=== PATIENT | female | born 1995 | race African-American/Black ===

== ENCOUNTER 2022-01-01 14:48 | Outpatient (CLI) | payer OTHER ==
[2022-01-01 16:16] LABS: Basophils % (A) 0 %; Eosinophils % (A) 0 %; HCT 36.6 % (34.0-46.0); HGB 11.8 gm/dL (11.4-16.0); Lymphocytes # (A) 1.9 k/uL (1.0-4.8); Lymphocytes % (A) 18 %; MCH 28.2 pg (25.0-35.0); MCHC 32.3 g/dL (31.0-37.0); MCV 87.3 fL (80.0-100.0); Monocytes # (A) 0.6 k/uL (0-1.0); Monocytes % (A) 6 %; Neutrophils # (A) 7.3 k/uL (1.3-7.7); Neutrophils % (A) 72 %; Platelet Count 191 k/uL (150-450); RBC 4.19 m/uL (3.80-5.40); RDW 13.3 % (11.5-15.5); WBC 10.1 k/uL (3.8-10.6)
[2022-01-01 16:20] VITALS: BP 133/74; PULSE 68; RESP 16; TEMP 97
[2022-01-01 16:20] LABS: Appearance,Urine Clear (Clear); Bilirubin,Urine Negative (Negative); Blood,Urine Negative (Negative); Color,Urine Yellow; Glucose,Urine (UA) Negative (Negative); Ketones,Urine Negative (Negative); Leukocyte Esterase,Urine Negative (Negative); Nitrite,Urine Negative (Negative); PH, Urine 6.5 (5.0-8.0); Protein,Urine Trace (Negative); Specific Gravity,Urine 1.024 (1.001-1.035); Urobilinogen,Urine <2.0 mg/dL (<2.0)
[2022-01-01 16:37] LABS: Amphetamine Screen,Urine Not Detected (NotDetected); Barbiturate Screen,Urine Not Detected (NotDetected); Benzodiazepines Screen,Urine Not Detected (NotDetected); Cocaine Screen,Urine Not Detected (NotDetected); Methadone Screen, Urine Not Detected (NotDetected); Opiate Screen,Urine Not Detected (NotDetected); Oxycodone Screen, Urine Not Detected (NotDetected); Phencyclidine Screen,Urine Not Detected (NotDetected); Tricyclic Antidepressant,Urine Not Detected (NotDetected); Urn Cannabinoid Scrn Detected (NotDetected)
--- NOTE | 2022-01-03 09:11 | P.MSEPDOC ---
Presenting Problems - Arrival Data Date of Arrival on Unit: 01/01/22 Time of Arrival on Unit: 14:42 Mode of Transport: Ambulatory - Complaint OB-Reason for Admission/Chief Complaint: Rule Out PROM Comment: yesterday at approx5-6pm, small leak of fluid, none since Medical History - Information : 3 Para: 1 Abortions: Spontaneous or Elective: 1 Number of Living Children: 1 - Gestational Age Gestational Age by ALEXANDER (wks/days): 33 Weeks and 3 Days - History Complications: No Care Review of Systems - Review of Systems Constitutional: No problems Breast: No problems ENT: No problems Cardiovascular: No problems Respiratory: No problems Gastrointestinal: No problems Genitourinary: No problems Musculoskeletal: No problems Neurological: No problems Skin: No problems Vital Signs - Temperature Temperature: 97.0 F Temperature Source: Temporal Artery Scan - Pulse Right Sitting Brachial Pulse Rate: 68 Pulse Assessment Method: Automatic Cuff - Respirations Respiratory Rate: 16 Oxygen Delivery Method: Room Air O2 Sat by Pulse Oximetry: 99 - Blood Pressure Right Arm Sitting Blood Pressure: 133/74 Blood Pressure Mean: 93 Blood Pressure Source: Automatic Cuff Medical Screen Scoring - Cervical Exam Dilation (cm): 0 Effacement (%): 0 Membranes: Intact - Uterine Contractions Frequency From (mins): 0 Frequency To (mins): 0 Duration From (seconds): 0 Duration To (seconds): 0 Intensity: Absent Resting: Soft to palpation - Assessment - Baby A Baseline FHR: 130 Heart Rate - NICHD Category: Category I (Normal) NST: Reactive Physician Notification - Physician Notified Physician Notified Date: 01/01/22 Physician Notified Time: 15:55 Physician: Leslye Ruiz New Order Received: Yes - Notification Comment Comment: labs, ua, uds. pt to f/u with cherrie in office to establish as new patient Maternal Triage Index - Maternal Triage Index Presenting for scheduled procedure w/no complaint: No - Stat/Priority 1 Stat Priority 1: No - Urgent/Priority 2 Urgent Priority 2: No - Prompt/Priority 3 Prompt Priority 3: Yes Criteria Met for Priority 3: leaking fluid Disposition - Disposition OB Disposition: Physician follow up in office, Discharge to home Discharge Date: 01/01/22 Discharge Time: 16:10 I agree with the RN Medical Screening Exam: Yes Case reviewed; plan agreed upon as documented in EMR&OBIX.: Yes Comments: Patient was neither seen nor examined by me Diagnosis: FALSE LABOR BEFORE 37 COMPLETED WEEKS OF GEST, THIRD TRI
== END 2022-01-01 16:10 | disposition home or self-care (01) ==
LOC: FBPOP 14:48
PROVIDERS: ATTEND Obstetrics & Gynecology
DX: O47.03 False labor before 37 completed weeks of gestation, third trimester (principal); Z3A.33 33 weeks gestation of pregnancy
CPT/HCPCS: 59025; 84112; 86900; 86901; 85025; 86850; 86870; 86880; 87340; 81003; 86780; 80306; 87390; G0463; 99203

== ENCOUNTER 2022-01-23 13:32 | Outpatient (CLI) | payer MEDICARE, OTHER ==
[2022-01-23 15:29] VITALS: BP 137/75; PULSE 70; RESP 16; TEMP 97.4
--- NOTE | 2022-02-03 08:59 | P.MSEPDOC ---
Presenting Problems - Arrival Data Date of Arrival on Unit: 01/23/22 Time of Arrival on Unit: 13:27 Mode of Transport: Ambulatory - Complaint OB-Reason for Admission/Chief Complaint: Other Comment: Patient presents to triage with increased pressure in her vagina for the last 2 weeks and swelling in her legs and ankles that started on sunday. Patient has an appt with Dr. Ruiz on 01/24 Medical History - Information : 3 Para: 2 Term: 1 : 1 Abortions: Spontaneous or Elective: 0 Number of Living Children: 1 - Gestational Age Gestational Age by ALEXANDER (wks/days): 36 Weeks and 4 Days - History Complications: Prior , Prior Comment: First delivery was a C/S for a drop in heartrate, patient states she had blood pressure issues with that . 2nd was a vaginal delivery, patient states she went into labor at "6 Months" and "they were not able to stop it" and the baby did not live. Review of Systems - Review of Systems Constitutional: No problems Breast: No problems ENT: No problems Cardiovascular: No problems Respiratory: No problems Gastrointestinal: No problems Genitourinary: No problems Musculoskeletal: No problems Neurological: No problems Skin: No problems Vital Signs - Temperature Temperature: 97.4 F Temperature Source: Temporal Artery Scan - Pulse Pulse Oximetery Pulse Rate: 70 Pulse Assessment Method: Pulse Oximetry - Respirations Respiratory Rate: 16 Oxygen Delivery Method: Room Air O2 Sat by Pulse Oximetry: 99 - Blood Pressure Sitting Blood Pressure: 137/75 Blood Pressure Mean: 95 Blood Pressure Source: Automatic Cuff Medical Screen Scoring - Cervical Exam Dilation (cm): 0 Effacement (%): 0 Station: -2 Membranes: Intact - Uterine Contractions Intensity: Absent Resting: Soft to palpation - Assessment - Baby A Baseline FHR: 130 Heart Rate - NICHD Category: Category I (Normal) NST: Reactive Physician Notification - Physician Notified Physician Notified Date: 01/23/22 Physician Notified Time: 14:18 Physician: Leslye Ruiz Order Received: Yes - Notification Comment Comment: Orders given to discharge patient home with instructions, patient to follow up with Dr. Ruiz in the office with her regularly schedule appt tomorrow Maternal Triage Index - Prompt/Priority 3 Prompt Priority 3: Yes Criteria Met for Priority 3: Patient is 36 4/7 with a history of a C/S delivery with her first baby and a demise with her second baby. Patient has been having vaginal pressure for the last 2 weeks and increased swelling of her ankles and feet since sunday. Patient has an appt with Dr. Ruiz tomorrow. Disposition - Disposition OB Disposition: Physician follow up in office, Discharge to home, Written follow up instructions reviewed Discharge Date: 01/23/22 Discharge Time: 14:19 I agree with the RN Medical Screening Exam: Yes Case reviewed; plan agreed upon as documented in EMR&OBIX.: Yes Comments: Patient is neither seen nor examined by me Diagnosis: FALSE LABOR BEFORE 37 COMPLETED WEEKS OF GEST, THIRD TRI
== END 2022-01-23 14:19 | disposition home or self-care (01) ==
LOC: FBPOP 13:32
PROVIDERS: ATTEND Obstetrics & Gynecology
DX: O47.03 False labor before 37 completed weeks of gestation, third trimester (principal); Z3A.36 36 weeks gestation of pregnancy; Z88.6 Allergy status to analgesic agent
CPT/HCPCS: 59025; G0463; 99213

== ENCOUNTER 2022-01-30 12:06 | Outpatient (CLI) | payer MEDICARE, OTHER ==
[2022-01-30 14:38] VITALS: BP 133/82; PULSE 81; RESP 18; TEMP 97.3
--- NOTE | 2022-01-30 15:10 | US ---
EXAMINATION TYPE: US OB BPP wo non-stress DATE OF EXAM: 01/30/2022 COMPARISON: NONE CLINICAL HISTORY: Non reactive NST. EXAM PERFORMED: Transabdominal (TA) BPP PARAMETERS: PRESENTATION: Vertex HEART RATE: 149 bpm RHYTHM: Normal APOLINAR: 6.1cm DIAPHRAGM IMAGED: yes BPP SCORIN. Breathin (1 episode of breathing of 30 second duration in 30 minutes of scanning time) 2. Movement: 2 (at least 3 discrete body movements in 30 minutes) 3. Tone: 2 (1 episode of active flexion/extension of limb) 4. APOLINAR: 2 (APOLINAR index > 5cm) TOTAL SCORE: 8 / 8 Impressions: 1. Normal biophysical profile scoring 8 out of 8 points. 2. Cardiac activity measures 149 bpm.
== END 2022-01-30 14:20 | disposition home or self-care (01) ==
LOC: FBPOP 12:06
PROVIDERS: ATTEND Obstetrics & Gynecology
DX: O36.5930 Maternal care for other known or suspected poor fetal growth, third trimester, not applicable or unspecified (principal); O41.03X0 Oligohydramnios, third trimester, not applicable or unspecified; Z3A.37 37 weeks gestation of pregnancy; Z88.0 Allergy status to penicillin
CPT/HCPCS: 59025; 76819

== ENCOUNTER 2022-02-02 09:07 | Inpatient (IN) | payer MEDICARE, OTHER ==
[2022-02-01 12:16] VITALS: BMI 33.1
[2022-02-02] MEDS ORDERED: LACTATED RINGERS 1,000 ML IV ONE (10:22)
[2022-02-02] MEDS ORDERED: CLINDAMYCIN 900 MG in DEXTROSE 5% IN WATER 50 ML IVPB ONE ×2 (10:22)
[2022-02-02] MEDS ORDERED: CITRIC ACID-SODIUM CITRATE 15 ML CUP PO ONE (10:22)
[2022-02-02 11:09] LABS: Basophils % (A) 0 %; Eosinophils % (A) 0 %; HCT 36.2 % (34.0-46.0); HGB 12.3 gm/dL (11.4-16.0); Lymphocytes # (A) 1.9 k/uL (1.0-4.8); Lymphocytes % (A) 19 %; MCH 29.5 pg (25.0-35.0); MCHC 34.1 g/dL (31.0-37.0); MCV 86.5 fL (80.0-100.0); Mean Platelet Volume 9.5; Monocytes # (A) 0.6 k/uL (0-1.0); Monocytes % (A) 7 %; Neutrophils # (A) 6.8 k/uL (1.3-7.7); Neutrophils % (A) 70 %; Platelet Count 193 k/uL (150-450); RBC 4.18 m/uL (3.80-5.40); RDW 13.7 % (11.5-15.5); WBC 9.8 k/uL (3.8-10.6)
[2022-02-02] MEDS ORDERED: MORPHINE SULFATE (PF) 0.3 MG/0.3 ML SYR ONE (11:32)
[2022-02-02] MEDS ORDERED: ePHEDrine 50 MG/ML 1 ML VIAL ONE (11:32)
[2022-02-02] MEDS ORDERED: ONDANSETRON 4 MG/2 ML VIAL ONE (11:32)
[2022-02-02] MEDS ORDERED: NALBUPHINE 10 MG/ML (1 ML AMP) ONE (11:32)
[2022-02-02] MEDS ORDERED: OXYTOCIN 30 UNITS/500 ML NS BAG IV ONE (11:32)
[2022-02-02] MEDS ORDERED: KETOROLAC 15 MG/ML 1 ML VIAL ONE (11:32)
--- NOTE | 2022-02-02 11:39 | P.HPOB ---
History of Present Illness H&P Date: 02/02/22 Chief Complaint: Here for repeat low transverse section This is a 26-year-old 3 para 10/08/2001 who presented at 38 weeks gestation for repeat low transverse section. EDC is 02/16/2022. Patient has a known IUGR , estimated weight 9 percentile, abdominal circumference 3rd percentile. There is also decreased fluid noted. Patient has a history of a previous stillbirth, unexplained etiology. There is a peripheral cord insertion noted. After thorough discussion with maternal- medicine, decision was made to deliver this baby at 38 weeks gestation. Past medical history is significant for anxiety and depression, seizure disor jae, thyroid disorder. Past surgical history section for nonreassuring heart tones and another institution. Current medications vitamins daily. ALLERGIES include penicillin to which she reports shortness of breath. Social history patient is a former tobacco smoker, she does smoke marijuana, she denies alcohol or drug use. history is significant for blood type B+, rubella status immune. VDRL testing, urine culture, hepatitis B surface antigen, HIV testing, gonorrhea and chlamydia cultures all negative. Group B strep cultures negative. Urine drug screen positive for kidney adenoids. One-hour Glucola 109. On exam vital signs are stable and the patient is afebrile. She is approximately 170 pounds. The general physical exam is within normal limits. Chest is clear. Extremities reveal no edema. Cervix is long thick and closed. heart rate is consistent with reactive NST. Impression: 38 week intrauterine , intrauterine growth restriction, abdominal circumference less than 3rd percentile, oligohydramnios, peripheral cord insertion. After consultation with maternal- medicine, recommendation was to deliver baby at 38 weeks gestation. Plan: Clindamycin prophylaxis. All risks and benefits have been discussed with the patient. She is declining the option of tubal ligation. We will proceed with low transverse section. Review of Systems Constitutional: Reports as per HPI Past Medical History Past Medical History: No Reported History History of Any Multi-Drug Resistant Organisms: None Reported Past Surgical History: Section Past Anesthesia/Blood Transfusion Reactions: No Reported Reaction Past Psychological History: Anxiety, Depression Additional Psychological History / Comment(s): NOT CURRENTLY ON ANY RX Smoking Status: Never smoker Past Alcohol Use History: None Reported Past Drug Use History: None Reported - Past Family History Mother Family Medical History: No Reported History Medications and Allergies Home Medications Medication Instructions Recorded Confirmed Type Pnv No.95/Ferrous Fum/Folic AC 1 each PO DAILY 01/30/22 02/02/22 History [ Multivitamin Tablet] Allergies Allergy/AdvReac Type Severity Reaction Status Date / Time Penicillins Allergy Dyspnea Verified 02/02/22 11:22 Exam Vital Signs Temp Pulse Resp BP 02/02/22 10:19 97.7 F 78 16 121/72 Intake and Output 02/01/22 02/02/22 02/02/22 22:59 06:59 14:59 Other: Weight 90.265 kg See dictation under HPI please Results Result Diagrams: 02/02/22 10:40 Assessment and Plan Assessment: 38 week intrauterine , intrauterine growth restriction. Peripheral cord insertion. History of stillbirth. Oligohydramnios. Maternal- medicine recommendation for liver at 38 weeks. Plan: Antibiotic prophylaxis given. For repeat low transverse section. All risks benefits and alternatives discussed. Tubal ligation declined. Time with Patient: Less than 30
[2022-02-02] MEDS ORDERED: ZOLPIDEM 5 MG TAB PO PRN (12:24)
[2022-02-02] MEDS ORDERED: ONDANSETRON 4 MG/2 ML VIAL IVP PRN (12:24)
[2022-02-02] MEDS ORDERED: diphenhydrAMINE 50 MG/ML 1 ML VIAL IVP PRN ×2 (12:24)
[2022-02-02] MEDS ORDERED: NALOXONE 0.4 MG/ML 1 ML VIAL IV PRN (12:24)
[2022-02-02] MEDS ORDERED: SIMETHICONE 80 MG CHEWABLE PO PRN (12:24)
[2022-02-02] MEDS ORDERED: diphenhydrAMINE 25 MG CAP PO PRN (12:24)
[2022-02-02] MEDS ORDERED: METOCLOPRAMIDE 5 MG/ML 2 ML VIAL IVP PRN (12:24)
[2022-02-02] MEDS ORDERED: diphenhydrAMINE 50 MG CAP PO PRN (12:24)
--- NOTE | 2022-02-02 12:24 | P.OP ---
Date of Procedure: 02/02/22 Preoperative Diagnosis: 38 weeks, intrauterine growth restriction, oligohydramnios, peripheral cord insertion, previous Postoperative Diagnosis: Same, liveborn male , right occiput transverse. Small fibroids sub serosally Procedure(s) Performed: Repeat low transverse section Anesthesia: spinal Surgeon: Leslye Ruiz Master Control Supervisor #1: Arthur Bhat Estimated Blood Loss (ml): 300 IV fluids (ml): 700 Urine output (ml): 100 Pathology: other (Placenta) Condition: stable Disposition: PACU Operative Findings: Several small subserosal uterine fibroids, occiput transverse position, light meconium-stained fluid, liveborn male with scores of 9 and 9 Description of Procedure: Antibiotics are given. Patient is brought to the operating suite. A spinal analgesia is administered without difficulty. Mata catheter is placed. The abdomen is prepped and draped in usual sterile fashion. The appropriate timeout was performed to assure proper patient and procedural identification. Analgesia is checked and noted to be adequate. A low transverse skin incision is made in this is carried down through the subcutaneous tissue to the fascia. Fascia is isolated, scored, extended bilaterally with curved Armstrong scissors. Peritoneum is next identified and incised, there is no bowel or bladder involvement. Bladder blade is placed over the dome of the bladder, bladder is very low and therefore not develop separately. A low transverse uterine incision is made in this is carried down. Artificial amniorrhexis revealed light meconium-stained fluid. 's head is delivered in the occiput transverse position. There is no nuchal cord noted. The patient is officially delivered of a liveborn at 1152 hours. Umbilical cord is doubly clamped and ligated, he is handed to waiting nurses for evaluation where scores of 9 and 9 at one and 5 minutes respectively are given. The placenta is delivered manually, it is inspected and noted to be intact with trivascular cord and a marginal insertion. This is sent to pathology for further evaluation. Uterus is then externalized and massaged. It is swept clean with a sterile sponge. Uterus is closed in a two-step fashion, first layer running locking, second layer imbricated. Excellent hemostasis. Bilateral tubes and ovaries appear normal. There are multiple small fibroids on the subserosal surface of the uterus, all less than 5 mm. The abdomen is suctioned with suction on guard and the uterus is gently placed back into the abdominal cavity. Bilateral gutters are inspected and cleaned. The peritoneum was allowed to heal by secondary intention. The fascia is closed in a running stitch of 0 Vicryl with over ligation in the midline. Subcutaneous tissue is irrigated, clean and dry. 4-0 undyed Monocryl is used in a subcuticular fashion for final skin closure. Steri-Strips and Mastisol are applied to the wound. All sponge needle and enhancement counts are correct. Mata is noted to be draining clear urine. Patient is brought back to the recovery room in excellent condition with stable vital signs including blood pressure 119/54, pulse 82, 98% O2 saturation. Patient is requesting circumcision for her son, who weighs 2560 g or 5 lbs. 10 oz.
[2022-02-02] MEDS ORDERED: KETOROLAC 15 MG/ML 1 ML VIAL IM STA (17:52)
[2022-02-02] MEDS: ACETAMINOPHEN TAB 500 MG TAB PO SCH ×2 (20:32→22:04)
[2022-02-02] MEDS: IBUPROFEN 600 MG TAB PO SCH (20:32)
[2022-02-02] MEDS: LACTATED RINGERS 1,000 ML IV SCH ×2 (20:33)
[2022-02-02] MEDS: SENNOSIDES-DOCUSATE SODIUM 1 EACH TAB PO SCH (20:36)
[2022-02-03] MEDS: IBUPROFEN 600 MG TAB PO SCH ×4 (02:04→21:05)
[2022-02-03] MEDS: ACETAMINOPHEN TAB 500 MG TAB PO SCH ×3 (03:44→17:39)
[2022-02-03] MEDS: LACTATED RINGERS 1,000 ML IV SCH ×5 (03:44→19:52)
[2022-02-03 06:25] LABS: Basophils % (A) 0 %; Eosinophils % (A) 0 %; HCT 35.1 % (34.0-46.0); HGB 11.2 gm/dL (11.4-16.0); Lymphocytes # (A) 1.6 k/uL (1.0-4.8); Lymphocytes % (A) 11 %; MCH 28.3 pg (25.0-35.0); MCV 88.4 fL (80.0-100.0); Mean Platelet Volume 9.5; Monocytes % (A) 7 %; Neutrophils # (A) 11.6 k/uL (1.3-7.7); Neutrophils % (A) 80 %; Platelet Count 174 k/uL (150-450); RBC 3.97 m/uL (3.80-5.40); RDW 13.3 % (11.5-15.5); WBC 14.4 k/uL (3.8-10.6)
[2022-02-03] MEDS: SENNOSIDES-DOCUSATE SODIUM 1 EACH TAB PO SCH ×2 (08:33→21:04)
--- NOTE | 2022-02-03 08:50 | P.PN ---
Subjective Progress Note Date: 02/03/22 Principal diagnosis: Doing well postoperative day #1 Voiding, ambulating, positive flatus. No complaints. Pain well managed Objective - Vital Signs Vital signs: Vital Signs Temp 98.1 F 02/03/22 04:00 Pulse 74 02/03/22 04:00 Resp 16 02/03/22 04:00 BP 130/72 02/03/22 04:00 Pulse Ox 98 02/03/22 04:00 Intake & Output 02/02/22 02/03/22 02/03/22 18:59 06:59 18:59 Output Total 1210 800 Balance -1210 -800 Weight 90.265 kg Output: Urine 600 800 Uretheral (Mata) 200 Emesis 0 Estimated Blood Loss 600 Output, Quantitative 10 Blood Loss - Constitutional General appearance: Present: average body habitus, cooperative - EENT Eyes: Present: PERRLA ENT: Present: hearing grossly normal - Neck Neck: Present: normal ROM - Respiratory Respiratory: bilateral: CTA - Cardiovascular Rhythm: regular - Gastrointestinal Gastrointestinal Comment(s): Incision clean and dry, intact, Steri-Strips applied. Fundus firm, midline, symmetric, 18 week size. - Integumentary Integumentary: Present: normal - Musculoskeletal Musculoskeletal: Present: gait normal, strength equal bilaterally - Psychiatric Psychiatric: Present: A&O x's 3, appropriate affect, intact judgment & insight - Labs CBC & Chem 7: 02/03/22 05:44 Labs: Abnormal Lab Results - Last 24 Hours (Table) 02/03/22 Range/Units 05:44 WBC 14.4 H (3.8-10.6) k/uL Hgb 11.2 L (11.4-16.0) gm/dL Neutrophils # 11.6 H (1.3-7.7) k/uL Assessment and Plan Assessment: Doing well postoperative day #1 Plan: Continue postoperative care. Circumcision this morning. Likely discharge home tomorrow. Time with Patient: Less than 30
--- NOTE | 2022-02-03 11:38 | P.PN ---
Progress Note - Text Progress Note Date: 02/03/22 Patient doing well. Ambulating w/o weakness or paresthesia. Pain controlled. Pruritis treated. Denies headache. Spinal site c/d a/p POD#1 s/p w/ duramorph - doing well
[2022-02-04] MEDS: ACETAMINOPHEN TAB 500 MG TAB PO SCH ×3 (00:10→11:01)
[2022-02-04] MEDS: IBUPROFEN 600 MG TAB PO SCH ×3 (02:55→09:01)
[2022-02-04 09:33] VITALS: BP 128/72; PULSE 88; RESP 16; TEMP 97.9
--- NOTE | 2022-02-04 10:38 | P.DS ---
Providers Date of admission: 02/02/22 09:32 Expected date of discharge: 02/04/22 Attending physician: Leslye Ruiz Primary care physician: Stated None - Discharge Diagnosis(es) (1) IUGR (intrauterine growth restriction) Current Visit: Yes Status: Acute (2) Oligohydramnios Current Visit: Yes Status: Acute (3) Previous section Current Visit: Yes Status: Acute (4) Fibroid uterus Current Visit: Yes Status: Acute Hospital Course: This is a 26 year old 3 [id number] woman who was admitted at 38 weeks gestation for planned repeat low transverse section secondary to history of previous stillbirth, current oligohydramnios and IUGR. She went to the operating room where she underwent an unremarkable repeat low transverse section. Findings at the time of surgery were significant for fibroid uterus, meconium-stained fluid and live born male infant with Apgars of 9 at 1 minute and 9 at 5 minutes weighing 5 pounds 10 ounces. Please see the delivery summary for details. The patient's course was unremarkable. By postoperative day #1 she was ambulating and voiding without difficulty. She was tolerating a general diet and her vital signs are stable. Her postoperative laboratory data was within normal limits. By postoperative day #2 she continued to do well although was struggling with some pain control. Her incision appeared to be well healing and her lochia was decreasing. She is using the breast pump with without difficulty. She was discharged home with routine instructions for postoperative care and follow-up. Procedures: Repeat low transverse section Plan - Discharge Summary Discharge Rx Participant: No New Discharge Prescriptions: New HYDROcodone/APAP 5-325MG [[place] 5-325] 1 tab PO Q4HR PRN 3 Days #18 tab PRN Reason: Pain Ibuprofen [Motrin] 600 mg PO Q6H tab No Action Pnv No.95/Ferrous Fum/Folic AC [ Multivitamin Tablet] 1 each PO DAILY Discharge Medication List Pnv No.95/Ferrous Fum/Folic AC [ Multivitamin Tablet] 1 each PO DAILY 01/30/22 [History] HYDROcodone/APAP 5-325MG [[place] 5-325] 1 tab PO Q4HR PRN 3 Days #18 tab 02/04/22 [Rx] Ibuprofen [Motrin] 600 mg PO Q6H tab 02/04/22 [Rx] Follow up Appointment(s)/Referral(s): Leslye Ruiz MD [STAFF PHYSICIAN] - 2 Weeks Activity/Diet/Wound Care/Special Instructions: Follow-up in 2 weeks after surgery in the office. Call the office with any concerning signs or symptoms including fever greater than 101, severe abdominal pain, heavy vaginal bleeding, signs of wound infection, increased swelling or redness of the lower extremities, signs of depression. No driving for 2 weeks after surgery. No heavy lifting or vigorous activity until reevaluated in the office. No intercourse for 6 weeks after delivery. Discharge Disposition: HOME SELF-CARE
== END 2022-02-04 11:45 | disposition home or self-care (01) | DRG 787 ==
LOC: 4FBP 09:32
PROVIDERS: ADMIT Obstetrics & Gynecology; ATTEND Obstetrics & Gynecology
PROC: 10D00Z1 Extraction of Products of Conception, Low, Open Approach (ICD-10-PCS; principal; 2022-02-02 12:00)
DX: O34.211 Maternal care for low transverse scar from previous cesarean delivery (principal); O41.03X0 Oligohydramnios, third trimester, not applicable or unspecified; O99.354 Diseases of the nervous system complicating childbirth; O36.5930 Maternal care for other known or suspected poor fetal growth, third trimester, not applicable or unspecified; O43.193 Other malformation of placenta, third trimester; O77.0 Labor and delivery complicated by meconium in amniotic fluid; D25.2 Subserosal leiomyoma of uterus; G40.909 Epilepsy, unspecified, not intractable, without status epilepticus; L29.9 Pruritus, unspecified; O34.13 Maternal care for benign tumor of corpus uteri, third trimester; Z37.0 Single live birth; Z3A.38 38 weeks gestation of pregnancy; Z87.891 Personal history of nicotine dependence
CPT/HCPCS: 59025; 76819; 85025; 86850; 86870; 86880; 86900; 86901; 86902; 88307